=== PATIENT | male | born 1960 | race Caucasian/White ===

== ENCOUNTER → 2018-05-08 | Outpatient (CLI) | payer BC ==
[2018-05-09 01:47] LABS: Rheumatoid Factor 11 IU/mL (0-15); Streptolysin O Ab(ASO) <25 IU/mL (0-200)
[2018-05-09 02:25] LABS: Uric Acid 7.6 mg/dL (3.7-8.7)
[2018-05-09 03:09] LABS: C Reactive Protein <0.4 mg/dL (0.0-0.8)
[2018-05-09 03:40] LABS: Hepatitis C IgG Antibody Non-Reactive (Non-Reactive)
[2018-05-09 10:38] LABS: HLA B27 NEGATIVE
[2018-05-09 15:46] LABS: Lyme IgG/IgM 0.1 Index
== END | disposition home or self-care (01) ==
LOC: LABWHC1 16:16
PROVIDERS: ATTEND Family Medicine
DX: M25.50 Pain in unspecified joint (principal); Z11.59 Encounter for screening for other viral diseases
CPT/HCPCS: 36415; 84550; 85652; 86038; 86060; 86140; 86431; 86618; 86803; 86812

== ENCOUNTER → 2018-09-29 | Outpatient (CLI) | payer BC ==
--- NOTE | 2018-09-29 14:04 | US ---
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 Patient has large lump left uppe r back over scapula x 2 years which is getting bigger. TECHNIQUE/FINDINGS: Targeted ultrasound was performed of the left posterior thorax overlying the scap rigoberto at the site of the patient's palpable abnormality. Large, solid mass at area of lump = 6.0 x 5.9 x 1.7 cm. This is well-circumscribed avascular with internal septa appearing is a lipoma. IMPRESSION: Well-circumscribed 6.0 cm lipomatous lesion. Although no suspicious features are seen on ultrasound MR with contrast is recommended given the interval growth per patient history to exclude aggressive lipomatous lesion.
== END | disposition home or self-care (01) ==
LOC: RADUSWWP 13:29
PROVIDERS: ATTEND Family Medicine
DX: D17.1 Benign lipomatous neoplasm of skin and subcutaneous tissue of trunk (principal)

== ENCOUNTER 2019-02-09 06:10 | Day surgery (SDC) | payer BC ==
[2019-02-07 10:42] VITALS: BMI 31.0
--- NOTE | 2019-02-08 21:10 | P.GSHP ---
History of Present Illness H&P Date: 02/09/19 CHIEF COMPLAINT: Back mass HISTORY OF PRESENT ILLNESS: Kushal Melendez is a 58-year-old male who reports growth along the left upper back, which actually had accelerated in growth in the last 6 months. He reports that it this is very uncomfortable and actually affects his work including movement along the left shoulder blade. He has not had previous lipomas before or tumors of this sort. There is no family history of similar events. There are no skin changes, fevers or chills. He presents here for excision. He denies any heart disease, previous chest pain or heart attacks. PAST MEDICAL HISTORY: Please see list. PAST SURGICAL HISTORY: Please see list. MEDICATIONS: Please see list. ALLERGIES: Please see list. SOCIAL HISTORY: No illicit drug use FAMILY HISTORY: No reports of Crohn disease or ulcerative colitis. REVIEW OF ORGAN SYSTEMS: CONSTITUTIONAL: No reports of fevers or chills. GI: Denies any blood in stools or constipation. PHYSICAL EXAM: VITAL SIGNS: Stable Patient is a 58-year-old male. CONSTITUTIONAL: Well developed and in no acute distress. Vitals reviewed. EYES: Conjuctivae without sclera icterus. Pupils are equally round and reactive to light. Extraocular movements grossly intact. HEAD, EARS, NOSE, THROAT: Moist buccal mucosa. Head is atraumatic, no rmocephalic. Hears conversational speech. No nasal drainage. NECK: Supple. No JV distention. No thyroidomegaly. RESPIRATORY: Non-labored respirations and equal bilateral excursions. No gross wheezes. CARDIOVASCULAR: Regular rate and rhythm. Extremities without moderate edema. Palpable 2+ radial pulses. ABDOMEN: No hepatomegaly. Soft. Non-tender. Nondistended. LYMPH: No neck lymphadenopathy. No axillary lymphadenopathy. MUSCULOSKELETAL: Gait within normal limits. Range of motion bilateral upper extremities within normal limits. Nail and fingers with good capillary refill. NEUROLOGIC: Cranial nerves I through XII grossly intact. Sensation upper and extremities intact. No focal or lateralizing signs. PSYCH: Appropriate affect. Alert and oriented to person, place and time. Displays appropriate insight. Skin: 6 cm tumor in the subcutaneous tissue that is easily mobile. Soft, and spongy in appearance. Clinical features consistent with lipoma. STUDIES: Ultrasound of the soft tissue independently reviewed confirms 6 cm lipoma of the back. ASSESSMENT: 1. Lipoma of the back. PLAN: 1. The extremely large size, over 5 cm will need general. 2. At least approximately 2 weeks for recovery were reviewed. 3. Excision of lipoma of the back to the subcutaneous tissue and muscle were also described. 4. He is intermediate risk for perioperative complications including seroma with the size of his lipoma Past Medical History Past Medical History: GERD/Reflux, Osteoarthritis (OA), Prostate Disorder Additional Past Medical History / Comment(s): hx ulcer, enlarged prostate History of Any Multi-Drug Resistant Organisms: None Reported Additional Past Surgical History / Comment(s): EGD, colonoscopy, oral surgery Past Anesthesia/Blood Transfusion Reactions: Motion Sickness Smoking Status: Former smoker - Past Family History Mother Family Medical History: No Reported History Medications and Allergies Home Medications Medication Instructions Recorded Confirmed Type No Known Home Medications 02/07/19 02/07/19 History Allergies Allergy/AdvReac Type Severity Reaction Status Date / Time No Known Allergies Allergy Verified 02/07/19 10:34
[~2019-02-09 06:10] MED LIST: DEXAMETHASONE SOD PHOSPHATE 10 MG/ML 1 ML VIAL IV ONE; HEPARIN SODIUM,PORCINE 5,000 UNIT/ML 1 ML VIAL SQ STA; HYDROmorphone 0.5 MG/0.5 ML SYRINGE IVP PRN; LACTATED RINGERS 1,000 ML IV SCH; LIDOCAINE 1% 20 ML VIAL (10MG/ML) FOR IV START INTRADERMA PRN; MIDAZOLAM 2 MG/2 ML VIAL IV PRN; ONDANSETRON 4 MG/2 ML VIAL IVP ONE; Pre Op ABX Message 1 EACH MISC MISCELLANE ONE; SCOPOLAMINE 1.5MG/72HR PATCH TRANSDERM ONE
[2019-02-09] MEDS ORDERED: MIDAZOLAM 2 MG/2 ML VIAL ONE (06:55)
[2019-02-09] MEDS ORDERED: fentaNYL (PF) 50 MCG/ML 2 ML AMP ONE (06:55)
[2019-02-09] MEDS ORDERED: LIDOCAINE 1% INJ 10MG/ML (20 ML MDV) ONE (06:55)
[2019-02-09] MEDS ORDERED: PROPOFOL 10 MG/ML 20 ML VIAL IV ONE (06:55)
[2019-02-09] MEDS ORDERED: PHENYLEPHRINE-0.9% NACL SYG 1 MG/10 ML SYRINGE ONE (06:55)
[2019-02-09 06:57] VITALS: RESP 16
[2019-02-09] MEDS ORDERED: LIDOCAINE 1%-EPI 1:100,000 20 ML VIAL SQ ONE ×2 (07:22→07:30)
[2019-02-09 08:13] VITALS: TEMP 97.3
--- NOTE | 2019-02-09 08:34 | P.OP ---
Date of Procedure: 02/09/19 Description of Procedure: SURGEON: OLIVA ALONZO MD CHUTE TENDER: None. PREOPERATIVE DIAGNOSES: 1. Left upper back tumor 2. Pre-existing lower urinary obstructive symptoms 3. Prostate disorder 4. Gastroesophageal reflux disease POSTOPERATIVE DIAGNOSES: 1. Deep subfascial/submuscular left upper back tumor, 9 x 10 cm 2. Pre-existing lower urinary obstructive symptoms 3. Prostate disorder 4. Gastroesophageal reflux disease PROCEDURES PERFORMED: 1. Excision of deep subfascial/submuscular left upper back mass, 9 x 10 cm 2. Complex four layer closure left upper back incision, 12-cm Anesthesia: GETA, local Estimated Blood Loss (ml): 5 Pathology: other (back mass) Condition: stable Disposition: same day COMPLICATIONS: None. Operative Findings: 1. Excision of deep subfascial lipoma left upper back tumor 9 x 10 cm INDICATIONS: The patient is a 58-year-old male who presents with symptomatic left upper back tumor. Benefits and risks of surgical intervention were described including bleeding, infection, seroma, pain and recurrence. Informed consent was obtained. DESCRIPTION OR PROCEDURE: In the preoperative area, the area of concern was marked with indelible marker. Patient was brought into the operating room. After general induction, he was positioned in right lateral decubitus position. The back was prepped and draped in a standard sterile fashion with ChloraPrep. Timeout protocol was confirmed with the surgical team regarding the patient's name, procedure to be performed including preoperative medications. DVT prophylaxis was confirmed. A field block was placed of the left lower back. An transverse incision using #15 blade was made along the marking into the dermis and subcutaneous tissue. Electro-Bovie cautery was used to enter deep into the fascia where a fibrous fatty multilobulated tumor was removed in total of 9 x 10 cm. The tumor was deep to the fascial insertion of the trapezius muscle and superficial to the inferior angle of the left scapula. 0 Vicryl for the fascia and deep subcutaneous tissue followed by 3-0 Vicryl for the subcutaneous tissue was placed in interrupted fashion. 4-0 Monocryl in a running subcuticular fashion was placed along the dermis. The skin was cleansed and Exofin tape with liquid was applied for a four layer closure. The incision was covered with Optifoam dressing. At the end of the procedure, needle, sponge, and instrument count was verified correct by surgical device sales representative. The patient tolerated the procedure well. Plan - Discharge Summary Discharge Rx Participant: No New Discharge Prescriptions: New RX: Ibuprofen [Motrin] 600 mg PO Q8HR PRN #30 tab PRN Reason: Pain Acetaminophen Tab [Tylenol Tab] 500 mg PO Q6H PRN #30 tablet PRN Reason: Pain RX: HYDROcodone/APAP 5-325MG [[place] 5-325] 1 tab PO Q6HR PRN 3 Days #5 tab PRN Reason: Pain Discharge Medication List Acetaminophen Tab [Tylenol Tab] 500 mg PO Q6H PRN #30 tablet 02/09/19 [Rx] RX: HYDROcodone/APAP 5-325MG [[place] 5-325] 1 tab PO Q6HR PRN 3 Days #5 tab 02/09/19 [Rx] RX: Ibuprofen [Motrin] 600 mg PO Q8HR PRN #30 tab 02/09/19 [Rx] RX: Tamsulosin [Flomax] 0.4 mg PO DAILY #5 cap.er.24h 02/09/19 [Rx] Follow up Appointment(s)/Referral(s): Oliva Alonzo MD [STAFF PHYSICIAN] - 02/13/19 Patient Instructions/Handouts: Lipoma Removal (DC), Soft Tissue Mass (ED) Activity/Diet/Wound Care/Special Instructions: No lifting over 10 pounds in 2 weeks, Feb 23. July shower. No bath tub soaks for two weeks until Feb 23. Diet as tolerated. Take pain medications ibuprofen and tylenol scheduled for the first 48hr/2 days for best pain relief. Use ice pack along the incision for the next 24 hrs to decrease swelling. No stretching left arm above the head. Limit movements of crossing the left arm across the body. Discharge Disposition: HOME SELF-CARE
[2019-02-09] MEDS ORDERED: TAMSULOSIN 0.4 MG CAP.ER.24H PO STA (08:35)
[2019-02-09] MEDS ORDERED: KETOROLAC 30 MG/ML 1 ML VIAL IVP STA (08:35)
[2019-02-09 08:52] VITALS: BP 128/87; PULSE 75
== END 2019-02-09 09:10 | disposition home or self-care (01) ==
LOC: OR 06:10
PROVIDERS: ATTEND Surgery Plastic and Reconstructive Surgery
DX: D17.1 Benign lipomatous neoplasm of skin and subcutaneous tissue of trunk (principal); K21.9 Gastro-esophageal reflux disease without esophagitis; M19.90 Unspecified osteoarthritis, unspecified site; Z87.891 Personal history of nicotine dependence; Z87.438 Personal history of other diseases of male genital organs
CPT/HCPCS: 88304; 21933; J2250; J1644; J1100; J0690; J2405; J2001; J3010; J2370; J2704

== ENCOUNTER 2019-09-28 17:20 | Emergency (ER) | payer BC ==
[2019-09-28 17:30] VITALS: RESP 18
--- NOTE | 2019-09-28 17:43 | ED ---
General Adult HPI - General Chief complaint: Fall Stated complaint: fall, lt hip pain Time Seen by Provider: 09/28/19 17:22 Source: patient, RN/MD, RN notes reviewed Mode of arrival: EMS Limitations: no limitations - History of Present Illness Initial comments: Patient is a pleasant [age]-year-old male presenting to the emergency Department with left hip pain. 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 Patient was leaning over when he flipped over and fell down. Patient fell possibly 6-8 feet. Patient landed on his left hip. Patient complains of discomfort of left hip and left thigh. Incident occurred prior to arrival. Patient states as comfort was severe and he felt that his hip may have been displaced. Patient states he pushed on it and had sudden pain and reduction of concerned displaced hip. Patient states discomfort is improved and is currently 3/10. Patient was able to ambulate into his bedroom after the incident. Patient denies any head injury. No neck or back pain. No chest pain or dyspnea. No abdominal pain. No history of significant hip injury previously. - Related Data Home Medications Medication Instructions Recorded Confirmed No Known Home Medications 09/28/19 09/28/19 Allergies Allergy/AdvReac Type Severity Reaction Status Date / Time No Known Allergies Allergy Verified 09/28/19 18:18 Review of Systems ROS Statement: Those systems with pertinent positive or pertinent negative responses have been documented in the HPI. ROS Other: All systems not noted in ROS Statement are negative. Constitutional: Denies: fever Eyes: Denies: eye pain ENT: Denies: ear pain Respiratory: Denies: cough Cardiovascular: Denies: chest pain Endocrine: Denies: fatigue Gastrointestinal: Denies: abdominal pain, vomiting Genitourinary: Denies: dysuria Musculoskeletal: Reports: as per HPI. Denies: back pain Skin: Denies: rash Neurological: Denies: headache, weakness, confusion Past Medical History Past Medical History: GERD/Reflux, Osteoarthritis (OA), Prostate Disorder Additional Past Medical History / Comment(s): hx ulcer, enlarged prostate History of Any Multi-Drug Resistant Organisms: None Reported Additional Past Surgical History / Comment(s): EGD, colonoscopy, oral surgery Past Anesthesia/Blood Transfusion Reactions: Motion Sickness Past Psychological History: No Psychological Hx Reported Smoking Status: Never smoker Past Alcohol Use History: Daily Past Drug Use History: None Reported - Past Family History Mother Family Medical History: No Reported History General Exam Limitations: no limitations General appearance: alert, in no apparent distress Head exam: Present: atraumatic, normocephalic Eye exam: Present: normal appearance, PERRL, EOMI ENT exam: Present: normal oropharynx Neck exam: Present: normal inspection. Absent: tenderness Respiratory exam: Present: normal lung sounds bilaterally Cardiovascular Exam: Present: regular rate, normal rhythm Expanded Peripheral pulses: 2+: Posterior Tibialis (R), Posterior Tibialis (L), Dorsalis Pedis (R), Dorsalis Pedis (L) GI/Abdominal exam: Present: soft. Absent: distended, tenderness Extremities exam: Present: tenderness (Mild tenderness left mid thigh. Mild to moderate tenderness left hip region.) Back exam: Present: normal inspection. Absent: vertebral tenderness Neurological exam: Present: alert, oriented X3, CN II-XII intact, other (Distal extremities are intact. Range of motion limited and left hip secondary to pain). Absent: motor sensory deficit Psychiatric exam: Present: normal affect, normal mood Skin exam: Present: normal color. Absent: rash Course Vital Signs 09/28/19 17:22 Temperature 98.2 F Pulse Rate 93 Respiratory 18 Rate Blood Pressure 132/81 O2 Sat by Pulse 96 Oximetry Medical Decision Making - Medical Decision Making Patient is able to get up and ambulate without any difficulty. Patient updated on results. Patient is feeling much better. - Radiology Data Radiology results: image reviewed (X-ray left femur and elbow shows no acute abnormality.) Disposition Clinical Impression: Fall, Hip injury Disposition: HOME SELF-CARE Condition: Stable Instructions (If sedation given, give patient instructions): Hip Sprain (ED), Hip Dislocation (ED) Additional Instructions: Please follow-up with primary care physician in the next day or 2 for recheck. Please also follow-up with orthopedics, number provided. Return for increased pain, difficulty walking, worsening symptoms or other concerns. Is patient prescribed a controlled substance at d/c from ED?: No Referrals: Donny Triplett MD [Primary Care Provider] - 1-2 days Evens Merino DO [Medical Doctor] - 1-2 days Time of Disposition: 18:41
--- NOTE | 2019-09-28 18:15 | XR ---
EXAMINATION TYPE: XR pelvis AP view DATE OF EXAM: 09/28/2019 COMPARISON: NONE HISTORY: Pain TECHNIQUE: Single view FINDINGS: Pelvic ring is intact. Proximal femurs and hip joints are intact. Sacroiliac joints appear normal. There is no evidence of a fracture. IMPRESSION: Negative exam. No fracture seen.
--- NOTE | 2019-09-28 18:16 | XR ---
EXAMINATION TYPE: XR femur LT DATE OF EXAM: 09/28/2019 COMPARISON: NONE HISTORY: Hip pain TECHNIQUE: 4 views FINDINGS: There is some spurring on the superior patella. The knee joint and hip joint appear intact. I see no fracture. Left sacroiliac joint appears intact. IMPRESSION: No acute abnormality of the left femur.
[2019-09-28 18:55] VITALS: BP 134/83; PULSE 89; TEMP 98.8
== END 2019-09-28 19:04 | disposition home or self-care (01) ==
LOC: EC 17:20
DX: S79.912A Unspecified injury of left hip, initial encounter (principal); M79.652 Pain in left thigh; W17.89XA Other fall from one level to another, initial encounter; Y93.89 Activity, other specified; Y92.89 Other specified places as the place of occurrence of the external cause
CPT/HCPCS: 72170; 99284

== ENCOUNTER → 2019-10-08 | Outpatient (CLI) | payer BC ==
--- NOTE | 2019-10-08 08:10 | CT ---
EXAMINATION TYPE: CT hip LT wo con DATE OF EXAM: 10/08/2019 COMPARISON: None HISTORY: left hip pain post fall CT DLP: 491.4 mGycm Automated exposure control for dose reduction was used. Unenhanced CT of the left hip was performed. Bone and soft tissue window settings are submitted. Coronal axial and sagittal images are reviewed. 3 -D imaging was obtained at a separate workstation. FINDINGS: There is fracture of the posterior acetabulum with displacement up to 2.9 mm. No additional fractures noted. Femoral head and neck are intact without additional fracture seen. Mild degenerative narrowin g left hip joint space. No soft tissue mass identified. Mild edema noted. Mild comminution noted. IMPRESSION: MINIMALLY COMMINUTED MINIMALLY DISPLACED POSTERIOR ACETABULAR FRACTURE.
== END | disposition home or self-care (01) ==
LOC: RADCTMAIN 07:30
PROVIDERS: ATTEND Orthopaedic Surgery
DX: M25.552 Pain in left hip (principal)